=== PATIENT | male | born 1980 | race Caucasian/White ===

== ENCOUNTER 2017-07-17 19:34 | Emergency (ER) | payer OTHER ==
[2017-07-17] MEDS ORDERED: DIPH,PERTUS(ACELL)TETVAC-LF 0.5 ML VIAL IM ONE (21:33)
--- NOTE | 2017-07-17 21:42 | ED ---
General Adult HPI - General Chief complaint: Urogenital Stated complaint: Dog Bite/Male Time Seen by Provider: 07/17/17 20:49 Source: patient, family, RN notes reviewed Mode of arrival: ambulatory Limitations: no limitations - History of Present Illness Initial comments: Patient is a pleasant 37-year-old male presenting to the emergency department following dog bite. Patient was wrestling with one of his 2 dogs and the other one bit him in the scrotum. Patient is concerned regarding injury. Unclear last tetanus immunization. Patient's dog is otherwise healthy and will be observed for 10 days for rabies. Patient is made aware of this. No other area of injury or concern. - Related Data Previous Rx's Medication Instructions Recorded Amoxic-Pot Clav 875-125Mg 1 tab PO Q12HR #14 tablet 07/17/17 [Augmentin 875-125] Allergies Allergy/AdvReac Type Severity Reaction Status Date / Time No Known Allergies Allergy Verified 07/17/17 20:04 Review of Systems ROS Statement: Those systems with pertinent positive or pertinent negative responses have been documented in the HPI. ROS Other: All systems not noted in ROS Statement are negative. Constitutional: Denies: fever Eyes: Denies: eye pain ENT: Denies: ear pain Respiratory: Denies: cough Cardiovascular: Denies: chest pain Endocrine: Denies: fatigue Gastrointestinal: Denies: abdominal pain Genitourinary: Reports: testicular pain. Denies: urgency, dysuria, frequency, hematuria, discharge Musculoskeletal: Denies: back pain Skin: Denies: lesions Neurological: Denies: weakness Past Medical History Past Medical History: No Reported History History of Any Multi-Drug Resistant Organisms: None Reported Past Surgical History: No Surgical Hx Reported Past Psychological History: No Psychological Hx Reported Smoking Status: Current every day smoker Past Alcohol Use History: Occasional Past Drug Use History: None Reported General Exam Limitations: no limitations General appearance: alert, in no apparent distress Head exam: Present: atraumatic Eye exam: Present: normal appearance ENT exam: Present: normal oropharynx Neck exam: Present: normal inspection Respiratory exam: Present: normal lung sounds bilaterally Cardiovascular Exam: Present: regular rate, normal rhythm GI/Abdominal exam: Present: soft. Absent: tenderness exam: Present: other (Flap-like laceration to the right side of the anterior scrotum approximately 3 cm total. There are some abrasions as well.) Extremities exam: Present: normal inspection Back exam: Present: normal inspection Neurological exam: Present: alert Psychiatric exam: Present: normal affect, normal mood Skin exam: Present: other (Scrotal laceration) Course Vital Signs 07/17/17 19:59 Temperature 97.6 F Pulse Rate 107 H Respiratory 17 Rate Blood Pressure 133/70 O2 Sat by Pulse 98 Oximetry - Reevaluation(s) Reevaluation #1: 07/17/17 21:37 Patient is made aware of risks of infection as well as risks for not closing the area of injury. Secondary to the injuries being close to 3 cm patient is advised to have some sutures placed and is in agreement with this. Procedures - Laceration Laceration #1 Consent Obtained: verbal consent Time Out Performed: Yes Indication: laceration Site: scrotum Size (cm): 3 Description: flap Depth: simple, single layer Anesthetic Used: lidocaine 1% Anesthesia Technique: local infiltration Pre-repair: wound explored, irrigated extensively (With Betadine and saline) Type of Sutures: nylon Size of Sutures: 5-0 Number of Sutures: 2 Technique: simple, interrupted Patient Tolerated Procedure: well, no complications Disposition Clinical Impression: Dog bite, Scrotal laceration Disposition: HOME SELF-CARE Condition: Stable Instructions: Animal Bite (ED), Laceration (ED), Care For Your Stitches (ED) Additional Instructions: Please observe the dog for 10 days for illness. 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 Twice daily wash area with soap and water and apply antibiotic ointment. Have primary care physician recheck the wound and 2 days. Return for redness, bleeding, swelling, fevers, increased pain, worsening symptoms or other concerns. Prescriptions: Amoxic-Pot Clav 875-125Mg [Augmentin 875-125] 1 tab PO Q12HR #14 tablet Referrals: Simba Butler MD [Primary Care Provider] - 1-2 days Time of Disposition: 21:41
[2017-07-17 21:56] VITALS: BP 167/67; PULSE 80; RESP 16; TEMP 98.4
== END 2017-07-17 21:55 | disposition home or self-care (01) ==
LOC: EC 19:34
DX: S31.31XA Laceration without foreign body of scrotum and testes, initial encounter (principal); F17.200 Nicotine dependence, unspecified, uncomplicated; Z23 Encounter for immunization; W54.0XXA Bitten by dog, initial encounter; Y93.72 Activity, wrestling
CPT/HCPCS: 12002; 90471; 90715; 99282

== ENCOUNTER 2020-09-24 16:00 | Emergency (ER) | payer OTHER ==
[2020-09-24 16:05] VITALS: RESP 18; TEMP 98.8
[2020-09-24] MEDS ORDERED: SODIUM CHLORIDE 0.9% 1,000 ML IV STA (16:19)
[2020-09-24] MEDS ORDERED: KETOROLAC 15 MG/ML 1 ML VIAL IVP STA (16:19)
--- NOTE | 2020-09-24 16:25 | ED ---
Abdominal Pain HPI - General Chief Complaint: Abdominal Pain Stated Complaint: lower lt abdominal pain Time Seen by Provider: 09/24/20 16:02 Source: patient Mode of arrival: ambulatory Limitations: no limitations - History of Present Illness Initial Comments: Patient is a 40-year-old male presenting to the emergency Department with complaints of left-sided abdominal pain started suddenly about 1-2 hours ago. Patient describes it as very sharp, radiation down into the left groin. He states denies a history of kidney stones, he denies history of abdominal surgeries. He denies any recent fever, chills. He did have some mild nausea, no vomiting or diarrhea. He did have a normal bowel movement today. He denies any hematuria but states he does feel a burning sensation. Denies any chest pain, shortness of breath. He currently rated his pain about an 8/10 but states in the past few minutes the pain has dissipated some but is currently a 2/10. He has no further complaints at this time. - Related Data Home Medications Medication Instructions Recorded Confirmed Atorvastatin [Lipitor] 10 mg PO DAILY 07/17/17 07/17/17 Phentermine HCl [Adipex-P] 37.5 mg PO QAM 07/17/17 07/17/17 Previous Rx's Medication Instructions Recorded Amoxic-Pot Clav 875-125Mg 1 tab PO Q12HR #14 tablet 07/17/17 [Augmentin 875-125] Ketorolac [Toradol] 10 mg PO Q8HR #8 tab 09/24/20 Allergies Allergy/AdvReac Type Severity Reaction Status Date / Time No Known Allergies Allergy Verified 07/17/17 20:04 Review of Systems ROS Statement: Those systems with pertinent positive or pertinent negative responses have been documented in the HPI. ROS Other: All systems not noted in ROS Statement are negative. Past Medical History Past Medical History: No Reported History History of Any Multi-Drug Resistant Organisms: None Reported Past Surgical History: No Surgical Hx Reported Past Psychological History: No Psychological Hx Reported Smoking Status: Never smoker Past Alcohol Use History: Occasional Past Drug Use History: None Reported General Exam - General Exam Comments Initial Comments: GENERAL: Patient is well-developed and well-nourished. Patient is nontoxic and in no acute distress. HEAD: Atraumatic, normocephalic. EYES: Pupils equal round and reactive to light, extraocular movements intact, sclera anicteric, conjunctiva are normal. Eyelids were unremarkable. ENT: TMs normal, nares patent, oropharynx clear without exudates. Moist mucous membranes. NECK: Normal range of motion, supple without lymphadenopathy or JVD. LUNGS: Unlabored respirations. Breath sounds clear to auscultation bilaterally and equal. No wheezes rales or rhonchi. HEART: Regular rate and rhythm without murmurs, rubs or gallops. ABDOMEN: Mild tenderness with palpation over left side of the abdomen. Soft, normoactive bowel sounds. No guarding, no rebound. No masses appreciated. : Deferred MUSCULOSKELETAL: Normal extremities with adequate strength and normal range of motion, no pitting or edema. No clubbing or cyanosis. NEUROLOGICAL: Patient is alert and oriented x 3. Motor and sensory are also intact. Cranial nerves II through XII grossly intact. Symmetrical smile. Normal speech, normal gait. PSYCH: Normal mood, normal affect. SKIN: Warm, Dry, normal turgor, no rashes or lesions noted. Limitations: no limitations Course Vital Signs 09/24/20 16:02 Temperature 98.8 F Pulse Rate 117 H Respiratory 18 Rate Blood Pressure 124/77 O2 Sat by Pulse 98 Oximetry Medical Decision Making - Medical Decision Making Patient is a 40-year-old male presenting with left-sided abdomen pain starting about 1-2 hours ago. Denies history of kidney stones, no hematuria. His vital signs are stable. He does has very mild tenderness in the left side of the abdomen, no other areas of pain. Labs shows slight leukocytosis at 12.3, most likely reactive, rest of labs are stable, kidney function is stable. Urine shows a large amount of blood, more than 182 WBCs, no signs of infection. CT of the abdomen shows no acute abnormality. Patient was given some fluids and Toradol and has been resting complaining the ER. I discussed these findings with the patient. He most likely does have a kidney stone that is too small to be seen on CT or possibly just recently passed. Patient states his pain is very slim to none at this time. He is stable for discharge. I will give him follow-up to urology. We'll also send him home with a few tablets of Toradol in case the pain does return. Recommended drinking lots of water of the next few days. Patient is in agreement with this plan of care. He is stable for discharge. Case discussed with - Lab Data Result diagrams: 09/24/20 16:23 09/24/20 16:23 Lab Results 09/24/20 09/24/20 09/24/20 Range/Units 16:23 16:23 16:23 WBC 12.3 H (3.8-10.6) k/uL RBC 5.34 (4.30-5.90) m/uL Hgb 15.9 (13.0-17.5) gm/dL Hct 48.9 (39.0-53.0) % MCV 91.6 (80.0-100.0) fL MCH 29.8 (25.0-35.0) pg MCHC 32.5 (31.0-37.0) g/dL RDW 13.0 (11.5-15.5) % Plt Count 195 (150-450) k/uL Neutrophils % 72 % Lymphocytes % 18 % Monocytes % 5 % Eosinophils % 2 % Basophils % 1 % Neutrophils # 8.9 H (1.3-7.7) k/uL Lymphocytes # 2.3 (1.0-4.8) k/uL Monocytes # 0.7 (0-1.0) k/uL Eosinophils # 0.3 (0-0.7) k/uL Basophils # 0.1 (0-0.2) k/uL Sodium 138 (137-145) mmol/L Potassium 4.3 (3.5-5.1) mmol/L Chloride 109 H (98-107) mmol/L Carbon Dioxide 21 L (22-30) mmol/L Anion Gap 8 mmol/L BUN 17 (9-20) mg/dL Creatinine 0.95 (0.66-1.25) mg/dL Est GFR (CKD-EPI)AfAm >90 (>60 ml/min/1.73 sqM) Est GFR (CKD-EPI)NonAf >90 (>60 ml/min/1.73 sqM) Glucose 101 H (74-99) mg/dL Calcium 9.6 (8.4-10.2) mg/dL Total Bilirubin 0.6 (0.2-1.3) mg/dL AST 20 (17-59) U/L ALT 14 (4-49) U/L Alkaline Phosphatase 79 (38-126) U/L Total Protein 7.3 (6.3-8.2) g/dL Albumin 4.4 (3.5-5.0) g/dL Lipase 59 (23-300) U/L Urine Color Yellow Urine Appearance Clear (Clear) Urine pH 6.5 (5.0-8.0) Ur Specific Ama 1.024 (1.001-1.035) Urine Protein Trace H (Negative) Urine Glucose (UA) Negative (Negative) Urine Ketones Negative (Negative) Urine Blood Large H (Negative) Urine Nitrite Negative (Negative) Urine Bilirubin Negative (Negative) Urine Urobilinogen <2.0 (<2.0) mg/dL Ur Leukocyte Esterase Negative (Negative) Urine RBC >182 H (0-5) /hpf Urine WBC 3 (0-5) /hpf Ur Squamous Epith Cells <1 (0-4) /hpf Hyaline Casts 1 (0-2) /lpf Urine Mucus Many H (None) /hpf Disposition Clinical Impression: Left sided abdominal pain, Left ureteral stone Disposition: HOME SELF-CARE Condition: Stable Instructions (If sedation given, give patient instructions): Kidney Stones (ED) Additional Instructions: Please return to the Emergency Department if symptoms worsen or any other concerns. May take ibuprofen or Tylenol for mild pain, may take a Toradol tablet for more severe pain. Follow-up with PCP if needed. Prescriptions: Ketorolac [Toradol] 10 mg PO Q8HR #8 tab Is patient prescribed a controlled substance at d/c from ED?: No Referrals: Addis Whitten MD [Primary Care Provider] - 1-2 days
[2020-09-24 16:41] LABS: Basophils # (A) 0.1 k/uL (0-0.2); Basophils % (A) 1 %; Eosinophils # (A) 0.3 k/uL (0-0.7); Eosinophils % (A) 2 %; HCT 48.9 % (39.0-53.0); HGB 15.9 gm/dL (13.0-17.5); Lymphocytes # (A) 2.3 k/uL (1.0-4.8); Lymphocytes % (A) 18 %; MCH 29.8 pg (25.0-35.0); MCHC 32.5 g/dL (31.0-37.0); MCV 91.6 fL (80.0-100.0); Mean Platelet Volume 9.8; Monocytes # (A) 0.7 k/uL (0-1.0); Monocytes % (A) 5 %; Neutrophils # (A) 8.9 k/uL (1.3-7.7); Neutrophils % (A) 72 %; Platelet Count 195 k/uL (150-450); RBC 5.34 m/uL (4.30-5.90); WBC 12.3 k/uL (3.8-10.6)
[2020-09-24 16:49] LABS: ALT 14 U/L (4-49); AST 20 U/L (17-59); African American GFR (CKD) >90 (>60 ml/min/1.73 sqM); Albumin 4.4 g/dL (3.5-5.0); Alkaline Phosphatase 79 U/L (38-126); Anion Gap 8 mmol/L; Blood Urea Nitrogen 17 mg/dL (9-20); Calcium 9.6 mg/dL (8.4-10.2); Carbon Dioxide 21 mmol/L (22-30); Chloride 109 mmol/L (98-107); Glucose 101 mg/dL (74-99); Lipase 59 U/L (23-300); Non-African American GFR(CKD) >90 (>60 ml/min/1.73 sqM); Potassium 4.3 mmol/L (3.5-5.1); Sodium 138 mmol/L (137-145); Total Bilirubin 0.6 mg/dL (0.2-1.3); Total Protein 7.3 g/dL (6.3-8.2)
[2020-09-24 17:04] LABS: Appearance,Urine Clear (Clear); Bilirubin,Urine Negative (Negative); Blood,Urine Large (Negative); Color,Urine Yellow; Glucose,Urine (UA) Negative (Negative); Hyaline Casts,Urine 1 /lpf (0-2); Ketones,Urine Negative (Negative); Leukocyte Esterase,Urine Negative (Negative); Mucus,Urine Many /hpf; Nitrite,Urine Negative (Negative); PH, Urine 6.5 (5.0-8.0); Protein,Urine Trace (Negative); RBC,Urine >182 /hpf (0-5); Specific Gravity,Urine 1.024 (1.001-1.035); Squamous Epithelial Cell,Urine <1 /hpf (0-4); Urobilinogen,Urine <2.0 mg/dL (<2.0); WBC,Urine 3 /hpf (0-5)
--- NOTE | 2020-09-24 17:10 | CT ---
EXAMINATION TYPE: CT abdomen pelvis wo con DATE OF EXAM: 09/24/2020 HISTORY: LT side abdomen pain CT DLP: 1460.4 mGycm. Automated Exposure Control for Dose Reduction was Utilized. TECHNIQUE: CT scan of the abdomen and pelvis is performed without oral or IV contrast. COMPARISON: NONE FINDINGS: Within the limitations of a non-contrast study, the following observations are made. LUNG BASES: No significant abnormality is appreciated. LIVER/GB: No significant abnormality is appreciated. PANCREAS: No significant abnormality is seen. SPLEEN: No significant abnormality is seen. ADRENALS: No significant abnormality is seen. KIDNEYS: No renal stones or hydronephrosis is present bilaterally. BOWEL: No significant abnormality is seen. GENITAL ORGANS: No gross abnormality seen. LYMPH NODES: No greater than 1cm abdominal or pelvic lymph nodes are appreciated. OSSEOUS STRUCTURES: No significant abnormality is seen. OTHER: No significant additional abnormality is seen. IMPRESSION: No acute findings identified on noncontrast CT.
[2020-09-24 17:33] VITALS: BP 123/79; PULSE 67
== END 2020-09-24 17:27 | disposition home or self-care (01) ==
LOC: EC 16:00
DX: N20.1 Calculus of ureter (principal); D72.829 Elevated white blood cell count, unspecified; Z79.899 Other long term (current) drug therapy
CPT/HCPCS: 36415; 80053; 83690; 85025; 81001; 74176; 99284; 96374; 96361; J1885